=== PATIENT | female | born 1955 | race Caucasian/White ===

== ENCOUNTER 2021-11-22 11:44 | Emergency (ER) | payer OTHER ==
[~2021-11-22] VITALS: Ht 165.1 cm; Wt 49.9 kg
[2021-11-22] MEDS ORDERED: XANAX 0.25 MG0.25 MG PO (11:53)
[2021-11-22] MEDS ORDERED: HYDROCHLOROTH12.5 M2 PO (11:53)
[2021-11-22 12:40] LABS: ABSOLUTE LYMPHOCYTES 0.8 thou/uL (0.8-5.3); ABSOLUTE MONOCYTES 0.3 thou/uL (0.0-1.2); ABSOLUTE NEUTROPHILS 3.5 thou/uL (1.6-8.1); BASOPHILS 0.7 %; EOSINOPHILS 0.4 %; HEMATOCRIT 39.8 % (37.0-47.0); HEMOGLOBIN 13.9 gm/dL (12.0-15.0); MCH 31.6 pg (26.0-34.0); MCHC 34.8 g/dL (28.0-37.0); MCV 90.9 fL (80.0-100.0); MONOCYTES 6.8 %; MPV 8.7 fl. (7.2-11.1); NUCLEATED RBCS 0 /100WBC; PLATELET COUNT* 134 thou/uL (150-400); POLYS 75.1 %; RBC 4.38 mil/uL (4.20-5.00); RDW-CV 12.2 % (10.5-14.5); WBC 4.7 thou/uL (4.0-11.0)
[2021-11-22 12:49] LABS: CALCIUM 8.3 mg/dL (8.5-10.1); CREATININE 0.7 mg/dL (0.6-1.3)
[2021-11-22 12:54] LABS: ALBUMIN 3.1 g/dL (3.4-5.0); TOTAL BILIRUBIN 0.4 mg/dL (<0.1-1.0); TOTAL PROTEIN 6.5 g/dL (6.4-8.2)
[2021-11-22 13:52] VITALS: BP 134/80
--- NOTE | 2021-11-22 13:55 | EKG ---
[place] [address] ELECTROCARDIOGRAM REPORT Name: ALYSAALEE Room: [facility]#: [id number] Admission: 11/22/21 Attend Phys: Discharge: 11/22/21 Date of : 57 Date of Service: 11/22/21 1224 Report #: [id number] THIS REPORT FOR: //name// [facility] ED Test Date: 2021-11-22 Test Time: 12:24:19 Pat Name: ALEE WATT Department: Room: Gender: F Transport Technician: : 1955 Requested By: Hiram Neil Order Number: [id number] MD: Sin Hay Measurements Intervals [place] Rate: 107 P: 82 [place]: 135 QRS: 96 QRSD: 141 T: -31 QT: 351 QTc: 469 Interpretive Statements Sinus tachycardia Nonspecific intraventricular conduction delay Borderline repol abnormality, lateral leads Baseline wander in lead(s) I,III,aVL Compared to ECG 04/18/2007 08:06:32 Intraventricular conduction delay now present Sinus rhythm no longer present Electronically Signed On 11-22-2021 13:55:45 REGISTERED NURSE OBSTETRICS by Sin Hay [email or web address] <ELECTRONICALLY SIGNED> By: Sin Hay MD, FACC 11/22/21 1355 1224 1224 Sin Hay MD, [facility] /EPI
== END 2021-11-22 13:53 | disposition home or self-care (01) ==
LOC: M.ERS 11:44
PROVIDERS: Family Medicine
DX: U07.1 COVID-19 (principal); F41.9 Anxiety disorder, unspecified; Z79.899 Other long term (current) drug therapy